=== PATIENT | male | born 1990 | race African-American/Black ===

== ENCOUNTER 2023-02-19 01:20 | Emergency (ER) | payer OTHER, SELFPAY ==
--- NOTE | ~2023-02-19 | CT_ITS ---
. EXAMINATION: CT facial bones wo con DATE: 02/19/2023 02:20 INDICATION: Head injury. Facial numbness. TECHNIQUE: Computed tomography (CT) of the facial bones and maxillofacial region was performed withou t intravenous contrast. Automated exposure control and iterative reconstruction technique were employ ed. The dose-length product was 561.58 mGy-cm. COMPARISON: Facial bone CT 12/10/2008 FINDINGS: There are blowout fractures of medial wall and floor of right orbit. Right medial rectus mu scle abuts the edge of a fracture fragment. There is leftward deviation of the nasal septum. There is mucosal thickening in the paranasal sinuses. There is dependent fluid in the maxillary sinuses. IMPRESSION: 1. Blowout fractures of medial wall and floor of right orbit. Reviewed, dictated and finalized at location A. REPATCHER
--- NOTE | ~2023-02-19 | CT_ITS ---
EXAMINATION: CT brain wo con DATE: 02/19/2023 02:20 INDICATION: Head injury. TECHNIQUE: Computed tomography (CT) of the head was performed without intravenous contrast. The mA wa s adjusted according to patient size. Iterative reconstruction technique was employed. The dose-lengt h product was 681.00 mGy-cm. COMPARISON: Head CT 12/10/2008 FINDINGS: There is no intracranial hemorrhage, acute infarction, or abnormal intracranial mass lesion . The ventricles are normal in size. There are blowout fractures of the medial wall and floor of righ t orbit. There is mucosal thickening in the paranasal sinuses. The mastoid air cells are normal. The re is dependent fluid in the maxillary sinuses. IMPRESSION: 1. Normal brain. 2. Blowout fractures of the medial wall and floor of right orbit. Reviewed, dictated and finalized at location A. LY SUPPORT WORKER
[2023-02-19 01:43] VITALS: BP 133/59; PULSE 70; RESP 19; TEMP 36.4; O2SAT 99
[2023-02-19 02:02] VITALS: BP 134/84; PULSE 72; RESP 15; O2SAT 100
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
[2023-02-19 06:53] VITALS: BP 152/86; PULSE 84; RESP 15; O2SAT 99
== END 2023-02-19 06:53 | disposition home or self-care (01) ==
PROVIDERS: Emergency Provider Emergency Medicine
DX: S02.31XA Fracture of orbital floor, right side, initial encounter for closed fracture (principal); S02.831A Fracture of medial orbital wall, right side, initial encounter for closed fracture; H11.31 Conjunctival hemorrhage, right eye; W22.8XXA Striking against or struck by other objects, initial encounter
CPT/HCPCS: 70450; 70486; 99284

== ENCOUNTER 2023-04-04 14:37 | Emergency (ER) | payer OTHER, SELFPAY ==
--- NOTE | ~2023-04-04 | XR_ITS ---
EXAMINATION: XR chest 2V DATE: 04/04/2023 15:01 INDICATION: Chest pain and tightness TECHNIQUE: PA and lateral views of the chest were obtained. COMPARISON: Chest radiograph dated 12/10/2008 FINDINGS: The lungs remain clear with no focal airspace opacities, pulmonary edema, pleural effusion or pneumot horax. The cardiomediastinal silhouette is normal. There is anterior wedging of a couple lower thorac ic vertebral bodies. IMPRESSION: 1. No acute cardiopulmonary disease. Reviewed, dictated and finalized at location A. STRIAL ELECTRICIAN JOURNEYMAN
--- NOTE | 2023-04-04 14:37 | ECG_ITS ---
Measurements Intervals [place] Rate: 74 P: 40 IL: 182 QRS: 36 QRSD: 89 T: 9 QT: 376 QTc: 418 Interpretive Statements SINUS RHYTHM NONSPECIFIC T-WAVE ABNORMALITY ABNORMAL ECG COMPARED TO ECG 04/04/2023 14:45:13 NO SIGNIFICANT CHANGES Electronically Signed On 04-05-2023 11:43:20 PLUMBER APPRENTICE by Elmer Castillo M.D.
[2023-04-04 14:48] VITALS: BP 154/67; PULSE 90; RESP 20; TEMP 36.8; O2SAT 98
[2023-04-04 15:07] LABS: Basophils Percent Auto 0.6 % (0.2-1.2); Eosinophils Absolute Auto 0.3 K/mm3 (0-0.3); Eosinophils Percent Auto 4.7 % (0-4.4); Hematocrit 40.4 % (42.0-52.0); Hemoglobin 12.2 g/dL (14.0-18.0); Immature Granulocyte Absolute 0.01 K/mm3 (0.00-0.031); Immature Granulocyte Percent A 0.2 % (0-0.5); Lymphocytes Absolute Auto 3.04 K/mm3 (0.9-3.2); Lymphocytes Percent Auto 56.6 % (18.3-44.2); Mean Corpuscular HGB Conc 30.2 g/dl (32-36); Mean Corpuscular Hemoglobin 28.4 pg (26-34); Mean Corpuscular Volume 94.2 fl (80-100); Mean Platelet Volume 9.3 fl (7.4-10.4); Monocytes Absolute Auto 0.7 K/mm3 (0.1-0.6); Monocytes Percent Auto 12.3 % (2.6-8.5); Neutrophils Absolute Auto 1.4 K/mm3 (1.3-6.7); Neutrophils Percent Auto 25.6 % (45.5-73.1); Platelet Count Result 274 k/mm3 (150-375); Red Blood Count 4.29 M/mm3 (4.6-6.20); Red Cell Distribution Width 12.4 % (11.5-14.5); White Blood Count 5.4 K/mm3 (4.5-10.0)
[2023-04-04 15:17] LABS: INR 0.9; Prothrombin Time 12.5 Seconds (11.1-14.7)
[2023-04-04 15:19] LABS: Alanine Aminotransferase 23 U/L (6-50); Albumin Level 4.1 g/dL (3.5-5.1); Alkaline Phosphatase 81 U/L (38-126); Anion Gap 0 mmol/L (8-16); Aspartate Amino Transferase 26 U/L (17-59); Bilirubin,Total 0.4 mg/dL (0.2-1.3); Blood Urea Nitrogen 12 mg/dL (9-20); Calcium 9.1 mg/dL (8.4-10.2); Carbon Dioxide 34 mmol/L (22-30); Chloride 103 mmol/L (98-107); Estimated Glomerular Filt Rate > 60; Glucose 118 mg/dL (65-110); Lipase 56 U/L (23-300); Partial Thromboplastin Time 30.3 SECONDS (22.3-36.8); Potassium 4.1 mmol/L (3.4-5.0); Sodium 137 mmol/L (137-145)
[2023-04-04 15:30] LABS: Troponin I < 0.012 ng/mL (0.000-0.034)
--- NOTE | 2023-04-04 17:43 | ECG_ITS ---
Measurements Intervals [place] Rate: 87 P: 40 MT: 175 QRS: 30 QRSD: 91 T: 8 QT: 361 QTc: 435 Interpretive Statements SINUS RHYTHM NONSPECIFIC T-WAVE ABNORMALITY ABNORMAL ECG NO PREVIOUS ECG AVAILABLE FOR COMPARISON Electronically Signed On 04-05-2023 11:41:48 REWEAVER by Elmer Castillo M.D.
[2023-04-04 17:45] VITALS: BP 127/74; PULSE 76; RESP 14; TEMP 36.6; O2SAT 100
[2023-04-04 17:51] VITALS: BP 127/74; PULSE 86; RESP 17; O2SAT 100
[2023-04-04 17:52] VITALS: PULSE 74
--- NOTE | 2023-04-04 17:57 | ED.CHESTPAIN ---
HPI - Chest Pain General Chief Complaint: Chest Pain Stated Complaint: heart attack Time Seen by Provider: 04/04/23 17:40 History of Present Illness HPI narrative: Patient is a 32-year-old male who presents to the emergency department this afternoon complaining of chest pain. Patient states that pain started approximately 30 minutes prior to arrival approximately 4 hours ago. Patient denies any similar symptoms in the past. He is currently denying any chest pain, states that the chest pain has resolved while he was waiting in the emergency department to be seen. Patient denies any significant medical history and denies any family history of cardiovascular disease. He denies any history of blood clotting disorder. Patient is currently on any additional symptoms including any shortness of breath, nausea, vomiting, abdominal pain, dysuria, hematuria, constipation, diarrhea, melena, hematochezia, fevers or chills. Patient also denies any headaches, dizziness, lightheadedness, blurry visions, focal weakness, numbness and or tingling. There are no other modifying, alleviating, or precipitating factors at this time. Related Data Allergies Allergy/AdvReac Type Severity Reaction Status Date / Time No Known Allergies Allergy Mild Verified 04/04/23 17:52 Review of Systems Review of Systems: All systems are reviewed and are negative unless stated otherwise in the HPI. PMFSH Comments Denies any significant past medical or surgical history, denies any significant family history, denies any tobacco use, alcohol abuse, illicit drug use. Exam Narrative: General: Alert, awake, afebrile, in no acute distress. HEENT: PERRL, no rhinorrhea, no post nasal drip, oropharynx clear. Neck: Trachea midline, no JVD, no lymphadenopathy. Cardiovascular: Regular rate and rhythm, no murmurs, rubs or gallops, no peripheral edema. Respiratory: Clear to auscultation bilaterally, no tachypnea, no wheezing, no rhonchi, no rubs, no respiratory distress. Abdomen: Soft, nontender, nondistended, no rebound, no guarding, no peritoneal signs. Musculoskeletal: No joint swelling or deformity, normal muscle tone. Skin: No rashes or petechia, no signs of infection. Psychiatric: Alert and oriented, normal behavior and judgment for situation. Neurological: Alert and oriented to person, place, and time. Follows all commands. No focal deficits, speech is clear and fluent. Course Vital Signs Vital signs: Vital Signs Temperature 98.2 F 04/04/23 14:48 Pulse Rate 90 04/04/23 14:48 Respiratory Rate 20 04/04/23 14:48 Blood Pressure 154/67 H 04/04/23 14:48 Pulse Oximetry 98 04/04/23 14:48 Temperature 97.8 F 04/04/23 17:45 Pulse Rate 74 04/04/23 17:52 Respiratory Rate 17 04/04/23 17:51 Blood Pressure 127/74 04/04/23 17:51 Pulse Oximetry 100 04/04/23 17:51 Oxygen Delivery Room Air 04/04/23 17:45 MDM - Chest Pain MDM Narrative Medical decision making narrative: The patient was evaluated by myself in the emergency department. History is obtained from patient who is an independent historian and physical exam was performed. External medical records were reviewed at this time. IV was established and pertinent tests were ordered. EKG was obtained which revealed sinus rhythm at a rate of 87 beats per minute. No ST changes, T wave inversions or evidence of acute ischemia. EKG was independently interpreted by me and is currently pending official cardiology read. Laboratory results obtained revealing no acute process. Two sets of troponins were obtained and both noted to be within normal limits. Patient has a low heart score of 0 and is PERC negative. Imaging studies obtained included CXR which was independently interpreted by me revealing no acute process, which is pending final radiology interpretation. Differential diagnosis considerations include acute viral syndrome including COVID/influenza, infectious process such as pneumoni
[2023-04-04 18:20] LABS: Troponin I < 0.012 ng/mL (0.000-0.034)
== END 2023-04-04 19:19 | disposition home or self-care (01) ==
PROVIDERS: Student in an Organized Health Care Education/Training Program; Emergency Provider Emergency Medicine
DX: R07.89 Other chest pain (principal)
CPT/HCPCS: 36415; 71046; 80053; 83690; 84484; 85025; 85610; 85730; 93005; 99284